=== PATIENT | female | born 1990 | race Caucasian/White ===

== ENCOUNTER 2020-07-08 12:14 | Outpatient (CLI) | payer BC, OTHER ==
[~2020-07-08] VITALS: Ht 162.6 cm; Wt 121.7 kg
[2020-07-08] VITALS (15 sets, daily range): BP systolic 133–196; BP diastolic 60–116
--- NOTE | 2020-07-08 12:05 | NUR ---
SNEHAL BRADEN presented to unit via AMBULATION from HOME, accompanied by S/O, with c/o HIGH BP. SNEHAL BRADEN weighed, gowned, voided, and to bed. EFHM and TOCO applied, VS taken. SNEHAL BRADEN oriented to bed controls, call light, TV, heat, and A/C controls.
--- NOTE | 2020-07-08 12:30 | NUR ---
DR SHARPE CALLED WITH ASSESSMENT, UA DIPSTICK RESULTS AND BP. NEW ORDERS RECEIVED.
[2020-07-08] MEDS ORDERED: NS IV 1000 ML 1,000 ML ONE (12:42)
[2020-07-08] MEDS ORDERED: MAGNESIUM SULFATE DRIP 500 ML IV ONE (12:42)
[2020-07-08] MEDS ORDERED: NS IV 1000 ML 1,000 ML IV SCH (12:45)
[2020-07-08] MEDS ORDERED: MAGNESIUM SULFATE DRIP 500 ML IV SCH (12:45)
[2020-07-08 13:02] LABS: BASOPHILS % (AUTO) 0 % (0-10); EOSINOPHILS # (AUTO) 0.1 10^3/uL (0.0-0.3); EOSINOPHILS % (AUTO) 1 % (0-10); HEMATOCRIT 35 % (35-52); LYMPHOCYTES # (AUTO) 1.9 X 10^3 (1.0-4.0); LYMPHOCYTES % (AUTO) 22 % (12-44); MEAN CORPUSCULAR HEMOGLOBIN 29 PG (25-34); MEAN CORPUSCULAR HGB CONC 34 G/DL (32-36); MEAN CORPUSCULAR VOLUME 85 FL (80-99); MEAN PLATELET VOLUME 11.8 FL (7.4-10.4); MONOCYTES # (AUTO) 0.5 X 10^3 (0.0-1.0); MONOCYTES % (AUTO) 6 % (0-12); NEUTROPHILS # (AUTO) 6.1 X 10^3 (1.8-7.8); NEUTROPHILS % (AUTO) 71 % (42-75); PLATELET COUNT 221 10^3/uL (130-400); RED CELL DISTRIBUTION WIDTH 13.6 % (10.0-14.5); WHITE BLOOD COUNT 8.6 10^3/uL (4.3-11.0)
[2020-07-08 13:11] LABS: BILIRUBIN,URINE NEGATIVE (NEGATIVE); CLARITY,URINE CLEAR; COLOR,URINE YELLOW; GLUCOSE, URINE (UA) NEGATIVE (NEGATIVE); KETONES,URINE NEGATIVE (NEGATIVE); NITRITE,URINE NEGATIVE (NEGATIVE); PROTEIN,URINE 3+ (NEGATIVE)
[2020-07-08 13:12] LABS: BACTERIA,URINE MODERATE /HPF; LEUKOCYTE ESTERASE ,URINE NEGATIVE (NEGATIVE); RBC,URINE RARE /HPF; SQUAMOUS EPITHELIAL CELL,UR 25-50 /HPF
[2020-07-08 13:13] LABS: AMORPHOUS SEDIMENT,UR MOD AMOR URATES /LPF
[2020-07-08 13:18] LABS: ALANINE AMINOTRANSFERASE 28 U/L (0-55); ALBUMIN 3.2 GM/DL (3.2-4.5); ALKALINE PHOSPHATASE 92 U/L (40-136); BILIRUBIN,TOTAL 0.3 MG/DL (0.1-1.0); BUN/CREATININE RATIO 17; CALCIUM 8.9 MG/DL (8.5-10.1); CARBON DIOXIDE 24 MMOL/L (21-32); CHLORIDE 103 MMOL/L (98-107); CREATININE SERUM 0.64 MG/DL (0.60-1.30); GFR ESTIMATED > 60; GLUCOSE 79 MG/DL (70-105); POTASSIUM 4.1 MMOL/L (3.6-5.0); SODIUM 134 MMOL/L (135-145); TOTAL PROTEIN 6.3 GM/DL (6.4-8.2); URIC ACID 6.5 MG/DL (2.6-7.2)
[2020-07-08] MEDS ORDERED: hydrALAZINE (APESOLINE) 20 MG/ML VIAL ONE ×2 (13:56→14:56)
[2020-07-08] MEDS ORDERED: BETAMETHASONE ACE/NA PHOS 6 MG/ML (CELESTONE SOLUSPAN) ONE (13:56)
--- NOTE | 2020-07-08 14:25 | NUR ---
[id number] DR SHARPE ON LABOR AND DELIVERY OVERLOOKING PATIENT LABS ARRANGING TRANSFER TO [facility].
--- NOTE | 2020-07-08 14:40 | NUR ---
TILTED TO LEFT WITH BLANKET TO LOW BACK.
--- NOTE | 2020-07-08 14:55 | NUR ---
DR NOTIFIED OF MOST RECENT BP. NEW ORDERS RECEIVED
[2020-07-08] MEDS ORDERED: hydrALAZINE (APESOLINE) 20 MG/ML VIAL IV NR (15:00)
[2020-07-08] MEDS ORDERED: hydrALAZINE (APESOLINE) 20 MG/ML VIAL IV PRN (15:00)
--- NOTE | 2020-07-08 15:12 | NUR ---
DR SHARPE NOTIFIED OF CONTINUED ELEVATION OF BP. NEW ORDERS RECEIVED. SEE EMAR.
[2020-07-08] MEDS ORDERED: MAGNESIUM 2 GM/50 ML IVPB 50 ML IV ONE (15:14)
[2020-07-08] MEDS ORDERED: LABETALOL HCL 20 MG/4 ML VIAL ONE ×3 (15:14→15:50)
--- NOTE | 2020-07-08 15:35 | NUR ---
DR SHARPE CALLED. UPDATE GIVEN BY THIS RN OF MOST RECENT BP. NEW ORDERS RECEIVED.
[2020-07-08] MEDS ORDERED: LABETALOL HCL 20 MG/4 ML VIAL IV ONE (15:45)
--- NOTE | 2020-07-08 15:50 | NUR ---
LABETALOL 20 MG CARPUJECT GIVEN TO EMS FOR HIGH BP SYSTOLIC OF >160 IN [address]TE TO [facility] PER DR SHARPE ORDER.
--- NOTE | 2020-07-08 16:05 | NUR ---
OUT OF WS WITH EMS VIA CART TO [facility]
--- NOTE | 2020-07-08 16:10 | HISTORY AND PHYSICAL ---
DATE OF SERVICE: ADMISSION DIAGNOSIS: Severe preeclampsia. HISTORY OF PRESENT ILLNESS: The patient is a 30-year-old 1, white female, currently at 27 weeks' gestation. She noticed an increased blood pressure at home, was directed to labor and delivery. Her blood pressures were running in the 190/100 plus range. She denies headaches, denies shortness of breath, denies nausea or vomiting. She denies ruptured membranes or bleeding. She is not feeling contractions. She is feeling the baby moving. ALLERGIES: None. MEDICATIONS: vitamins. Past medical, social and surgical histories are per this patient's antepartum record. PHYSICAL EXAMINATION: HEENT: Normal. NECK: Supple, with no lymphadenopathy and no thyromegaly. HEART: Has a regular rhythm with no murmur. CHEST: Clear to auscultation bilaterally. ABDOMEN: Gravid, soft, nontender and nondistended. PELVIC EXAM: Deferred. EXTREMITIES: Show no clubbing or cyanosis. There is no Yadi sign. There is fairly significant pretibial pitting edema. Her DTRs were 3+ to 4/4 globally. monitor shows normal heart rate pattern with no contractions. Lab work is pending. The initial lab work that is available showed a hemoglobin of 12, a platelet count of over 200,000, a slightly elevated LDH, liver enzymes are normal, but were approaching the upper limit of normal, uric acid of 6.5 and a urine protein creatinine ratio that is pending on the urine that had 3+ proteinuria on dipstick. The patient's blood pressures have remained in the 180/190 range since her presentation here at labor and delivery. ASSESSMENT AND PLAN: This is a 27-week , presenting with severe preeclampsia. I have discussed the situation and prognosis with the patient. The patient understands the need for transfer to tertiary care, both for her and for her 27-week baby. In the event of delivery was required, which is quite likely with a severe preeclamptic, the patient understands and once we have stabilized the patient and got the blood pressure under better control, we will contact [facility] for authority to transfer the patient. Job ID: [id number] DocumentID: [id number] Dictated Date: 07/08/2020 14:10:58 911 Emergency Dispatcher Date: 07/08/2020 16:10:00 Dictated By: RYLEY SHARPE MD
== END 2020-07-08 16:05 | disposition designated cancer center or children's hospital (05) ==
LOC: LDRP 12:14 → WSo 12:14
PROVIDERS: ATTEND Obstetrics & Gynecology
DX: O11.2 Pre-existing hypertension with pre-eclampsia, second trimester (principal); Z3A.27 27 weeks gestation of pregnancy
CPT/HCPCS: 36415; 80053; 81000; 82570; 83615; 84156; 84550; 85025; 96361; 96372; 96374; 96375; 96376; 99214